=== PATIENT | male | born 1950 | race Two or more races ===

== ENCOUNTER → 2017-02-26 | Outpatient (REF) | payer MEDICARE, OTHER | LOC: M SMT 13:00 | PROVIDERS: ATTEND Nurse Practitioner Women's Health | DX: R39.15 Urgency of urination (principal) | CPT/HCPCS: 51798; 81001; 87086; G0463 ==

== ENCOUNTER → 2019-05-19 | Outpatient (REF) | LOC: M LAB REF 13:14 | DX: D50.9 Iron deficiency anemia, unspecified (principal) ==